=== PATIENT | female | born 1950 | race Caucasian/White ===

== ENCOUNTER 2017-11-10 17:31 | Emergency (ER) | payer MEDICARE, BC ==
--- NOTE | 2017-11-10 18:28 | EDM.PDOC ---
ED HPI GENERAL MEDICAL PROBLEM - General Chief Complaint: General Stated Complaint: ILLNESS Time Seen by Provider: 11/10/17 18:20 Source of Information: Reports: Patient History Limitations: Reports: No Limitations - History of Present Illness INITIAL COMMENTS - FREE TEXT/NARRATIVE: pt arrived with hisory of a fever and frquent stools today. Onset: Today, Other (pt is feeling fatiqued. ) Duration: Hour(s): Location: Reports: Abdomen, Generalized Associated Symptoms: Reports: Fever/Chills, Loss of Appetite, Weakness - Related Data Allergies Allergy/AdvReac Type Severity Reaction Status Date / Time No Known Allergies Allergy Unverified 11/10/17 18:04 Home Meds: Home Meds Aspirin [Low Dose Aspirin EC] 81 mg PO DAILY 04/21/14 [History] Calcium Carbonate 1 tab PO BID 04/21/14 [History] FLUoxetine [PROzac] 30 mg PO DAILY 04/21/14 [History] Folic Acid 2 mg PO DAILY 04/21/14 [History] Hydrochlorothiazide 25 mg PO DAILY 04/21/14 [History] Methotrexate 15 mg PO WEEKLY 04/21/14 [History] Potassium Chloride 10 meq PO DAILY 04/21/14 [History] Simvastatin [Zocor] 40 mg PO DAILY 04/21/14 [History] Triamcinolone Acetonide [Triderm] 1 applic TOP BID PRN 04/21/14 [History] Past Medical History HEENT History: Reports: Cataract, Impaired Vision Cardiovascular History: Reports: High Cholesterol, Hypertension 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: Musculoskeletal History: Reports: RA Other Musculoskeletal History: psoriatic arthritis Psychiatric History: Reports: Anxiety, Depression Endocrine/Metabolic History: Reports: Obesity/BMI 30+ Dermatologic History: Reports: Psoriasis - Infectious Disease History Infectious Disease History: Reports: C-Difficile, Measles, Mumps, Shingles - Past Surgical History HEENT Surgical History: Reports: Cataract Surgery, Tonsillectomy GI Surgical History: Reports: Appendectomy, Cholecystectomy Female Surgical History: Reports: Tubal Ligation Social & Family History - Tobacco Use Smoking Status *Q: Current Every Day Smoker Years of Tobacco use: 19 Packs/Tins Daily: 1 Used Tobacco, but Quit: No Month Tobacco Last Used: 12/19 Second Hand Smoke Exposure: Yes - Caffeine Use Caffeine Use: Reports: Coffee - Alcohol Use Days Per Week of Alcohol Use: 0 - Recreational Drug Use Recreational Drug Use: No ED ROS GENERAL - Review of Systems Review Of Systems: See Below Constitutional: Reports: Fever, Chills, Malaise, Weakness HEENT: Reports: No Symptoms Respiratory: Reports: Cough, Other ( dry non productive. ) Endocrine: Reports: No Symptoms GI/Abdominal: Reports: No Symptoms : Reports: No Symptoms Musculoskeletal: Reports: No Symptoms Skin: Reports: No Symptoms ED EXAM, GENERAL - Physical Exam Exam: See Below Free Text/Narrative:: pt arrived with markd weakness. She has a low grade temp. Sh has not eaten or drank all day. She had part of her toe nail removed but that does not look infected. Exam Limited By: No Limitations General Appearance: Alert, Anxious, Moderate Distress Ears: Normal TMs Nose: Normal Inspection Throat/Mouth: Normal Inspection Head: Atraumatic Neck: Normal Inspection Respiratory/Chest: No Respiratory Distress Cardiovascular: Regular Rate, Rhythm GI/Abdominal: No Distention (Female) Exam: Deferred Rectal (Female) Exam: Deferred Back Exam: Normal Inspection Extremities: Normal Inspection Neurological: Alert, Oriented, Normal Cognition Course - Vital Signs Last Recorded V/S: Last Vital Signs Temp 37.4 C 11/10/17 22:26 Pulse 77 11/10/17 22:26 Resp 18 11/10/17 22:26 BP 155/76 H 11/10/17 22:26 Pulse Ox 93 L 11/10/17 22:26 - Orders/Labs/Meds Labs: Laboratory Tests 11/10/17 11/10/17 11/10/17 Range/Units 18:34 18:34 18:34 WBC 11.0 (4.5-11.0) K/uL RBC 4.62 (3.30-5.50) M/uL Hgb 15.3 H (12.0-15.0) g/dL Hct 43.5 (36.0-48.0) % MCV 94 (80-98) fL MCH 33 H (27-31) pg MCHC 35 (32-36) % Plt Count 158 (150-400) K/uL Neut % (Auto) 83 H (36-66) % Lymph % (Auto) 9 L (24-44) % [place] % (Auto) 8 H (2-6) % Eos % (Auto) 1 L (2-4) % Baso % (Auto) 0 (0-1) % Sodium 139 L (140-148) mmol/L Potassium 2.8 L* (3.6-5.2) mmol/L Chloride 99 L (100-108) mmol/L Carbon Dioxide 28 (21-32) mmol/L Anion Gap 14.8 H (5.0-14.0) mmol/L BUN 16 (7-18) mg/dL Creatinine 0.9 (0.6-1.0) mg/dL Est Cr Clr Drug Dosing 44.52 mL/min Estimated GFR (MDRD) > 60 (>60) Glucose 114 H (74-106) mg/dL Lactic Acid (0.4-2.0) mmol/L Calcium 8.2 L (8.5-10.1) mg/dL Total Bilirubin 0.6 (0.2-1.0) mg/dL AST 20 (15-37) U/L ALT 28 (12-78) U/L Alkaline Phosphatase 51 (46-116) U/L C-Reactive Protein 2.66 H (0.0-0.3) mg/dL Total Protein 6.5 (6.4-8.2) g/dL Albumin 3.5 (3.4-5.0) g/dL Globulin 3.0 (2.3-3.5) g/dL Albumin/Globulin Ratio 1.2 (1.2-2.2) Urine Color Urine Appearance Urine pH (4.5-8.0) Ur Specific [place] (1.008-1.030) Urine Protein (NEGATIVE) mg/dL Urine Glucose (UA) (NEGATIVE) mg/dL Urine Ketones (NEGATIVE) mg/dL Urine Occult Blood (NEGATIVE) Urine Nitrite (NEGATIVE) Urine Bilirubin (NEGATIVE) Urine Urobilinogen (NORMAL) mg/dL Ur Leukocyte Esterase (NEGATIVE) Urine RBC (0-5) Urine WBC (0-5) Ur Epithelial Cells Amorphous Sediment Urine Bacteria Urine Mucus 11/10/17 11/10/17 Range/Units 19:08 21:39 WBC (4.5-11.0) K/uL RBC (3.30-5.50) M/uL Hgb (12.0-15.0) g/dL Hct (36.0-48.0) % MCV (80-98) fL MCH (27-31) pg MCHC (32-36) % Plt Count (150-400) K/uL Neut % (Auto) (36-66) % Lymph % (Auto) (24-44) % [place] % (Auto) (2-6) % Eos % (Auto) (2-4) % Baso % (Auto) (0-1) % Sodium (140-148) mmol/L Potassium (3.6-5.2) mmol/L Chloride (100-108) mmol/L Carbon Dioxide (21-32) mmol/L Anion Gap (5.0-14.0) mmol/L BUN (7-18) mg/dL Creatinine (0.6-1.0) mg/dL Est Cr Clr Drug Dosing mL/min Estimated GFR (MDRD) (>60) Glucose (74-106) mg/dL Lactic Acid 1.6 (0.4-2.0) mmol/L Calcium (8.5-10.1) mg/dL Total Bilirubin (0.2-1.0) mg/dL AST (15-37) U/L ALT (12-78) U/L Alkaline Phosphatase (46-116) U/L C-Reactive Protein (0.0-0.3) mg/dL Total Protein (6.4-8.2) g/dL Albumin (3.4-5.0) g/dL Globulin (2.3-3.5) g/dL Albumin/Globulin Ratio (1.2-2.2) Urine Color Yellow Urine Appearance Slightly cloudy Urine pH 6.0 (4.5-8.0) Ur Specific [place] 1.015 (1.008-1.030) Urine Protein Negative (NEGATIVE) mg/dL Urine Glucose (UA) Normal (NEGATIVE) mg/dL Urine Ketones 15 H (NEGATIVE) mg/dL Urine Occult Blood Moderate (NEGATIVE) Urine Nitrite Negative (NEGATIVE) Urine Bilirubin Small (NEGATIVE) Urine Urobilinogen 1 (NORMAL) mg/dL Ur Leukocyte Esterase Moderate (NEGATIVE) Urine RBC 10-20 H (0-5) Urine WBC 5-10 H (0-5) Ur Epithelial Cells Few Amorphous Sediment Few Urine Bacteria Moderate Urine Mucus Many Meds: Medications Discontinued Medications Generic Name Dose Route Start Last Admin Trade Name Freq PRN Reason Stop Dose Admin Acetaminophen 650 mg 11/10/17 20:58 11/10/17 21:25 Tylenol PO 11/10/17 20:59 650 mg NOW ONE Administration Sodium Chloride 1,000 mls @ 999 mls/hr 11/10/17 18:30 11/10/17 18:58 Normal Saline IV 999 mls/hr ASDIRECTED MIAH Administration Potassium Chloride 20 meq/ 100 mls @ 50 mls/hr 11/10/17 18:59 11/10/17 19:27 Premix IV 11/10/17 20:58 50 mls/hr ONETIME ONE Administration Sodium Chloride 1,000 mls @ 500 mls/hr 11/10/17 20:00 11/10/17 21:24 Normal Saline IV 500 mls/hr ASDIRECTED MIAH Administration Ceftriaxone Sodium 1 gm/ 50 mls @ 100 mls/hr 11/10/17 20:57 11/10/17 21:26 Sodium Chloride IV 11/10/17 21:26 100 mls/hr ONETIME ONE Administration Lidocaine HCl Confirm 11/10/17 19:20 11/10/17 19:31 Xylocaine-Mpf 1% Administered 11/10/17 19:21 Not Given Dose 5 ml .ROUTE .STK-MED ONE Lidocaine HCl 2 ml 11/10/17 19:29 11/10/17 19:30 Xylocaine-Mpf 1% INJECT 11/10/17 19:30 2 ml ONETIME ONE Administration - Re-Assessments/Exams Free Text/Narrative Re-Assessment/Exam: 11/10/17 20:53 pt had a k of 2.8. Her urine looks like it could be infected. A culture was set up. 11/10/17 22:21 lactic acid was normal. She was given rocephen 1 gm iv. 11/14/17 07:33 because of her past history of cdiff she was watched for any fuirther diarrha and she had no loose stools while in the er. Departure - Departure Time of Disposition: 21:38 Disposition: Home, Self-Care 01 Condition: Fair Clinical Impression: Hypokalemia, UTI (urinary tract infection) - Discharge Information Instructions: Hypokalemia, Urinary Tract Infection, Adult Referrals: Francie Benton PA [Primary Care Provider] - Forms: ED Department Discharge Care Plan Goals: tylenol for fever, cipro 500mg bid for 1 week, push fluids, increase kcl to 20 meq. y
[2017-11-10] MEDS ORDERED: Sodium Chloride 0.9% 1,000 ML IV SCH ×2 (18:30→20:00)
[2017-11-10] MEDS ORDERED: Potassium Chloride 20 MEQ in Premix Bag 1 BAG IV ONE (18:59)
[2017-11-10] MEDS ORDERED: cefTRIAXone 1 GM in Sodium Chloride 0.9% 50 ML IV ONE (20:57)
[2017-11-10] MEDS ORDERED: Acetaminophen 325 MG Tab PO ONE (20:58)
[2017-11-10 22:27] VITALS: BP 155/76
--- NOTE | 2017-11-11 10:23 | CR ---
Chest 2V HISTORY: Cough COMPARISON: None FINDINGS: Cardiac size and pulmonary vessels normal. There are no infiltrates or effusions. No pneumo thorax. The osseous structures appear normal. IMPRESSION: No acute pulmonary disease.
== END 2017-11-10 22:32 | disposition home or self-care (01) ==
LOC: JP.ED 17:31
DX: E87.6 Hypokalemia (principal); N39.0 Urinary tract infection, site not specified; E78.00 Pure hypercholesterolemia, unspecified; I10 Essential (primary) hypertension; E66.9 Obesity, unspecified; F17.210 Nicotine dependence, cigarettes, uncomplicated; Z79.899 Other long term (current) drug therapy; Z79.82 Long term (current) use of aspirin
CPT/HCPCS: 36415; 71046; 80053; 81001; 83605; 85025; 86140; 87086; 87804; 96361; 96365; 99284; A9270; J0696; J3480; J7040; J7050; 99283

== ENCOUNTER 2020-10-07 17:49 | Emergency (ER) | payer MEDICARE, BC ==
[2020-10-07 18:08] VITALS: BP 170/77; PULSE 56
[2020-10-07] MEDS ORDERED: Silver Nitrate Applicator Each TOP ONE (18:18)
--- NOTE | 2020-10-07 18:21 | EDM.PDOC ---
ED HPI GENERAL MEDICAL PROBLEM - General Chief Complaint: Laceration Stated Complaint: CUT WHILE SHAVING Time Seen by Provider: 10/07/20 18:16 Source of Information: Reports: Patient History Limitations: Reports: No Limitations - History of Present Illness INITIAL COMMENTS - FREE TEXT/NARRATIVE: 70-year-old female presents emergency department today with a injury to her chin, she has a shaving injury this is superficial but it would not stop bleeding. - Related Data Allergies Allergy/AdvReac Type Severity Reaction Status Date / Time No Known Allergies Allergy Unverified 10/07/20 18:09 Home Meds: Home Meds Aspirin [Low Dose Aspirin EC] 81 mg PO DAILY 04/21/14 [History] Calcium Carbonate 1 tab PO BID 04/21/14 [History] FLUoxetine [PROzac] 30 mg PO DAILY 04/21/14 [History] Folic Acid 2 mg PO DAILY 04/21/14 [History] Methotrexate 15 mg PO WEEKLY 04/21/14 [History] Potassium Chloride 10 meq PO DAILY 04/21/14 [History] Simvastatin [Zocor] 40 mg PO DAILY 04/21/14 [History] Triamcinolone Acetonide [Triderm] 1 applic TOP BID PRN 04/21/14 [History] hydroCHLOROthiazide [Hydrochlorothiazide] 25 mg PO DAILY 04/21/14 [History] Past Medical History HEENT History: Reports: Cataract, Impaired Vision Cardiovascular History: Reports: High Cholesterol, Hypertension 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: Musculoskeletal History: Reports: RA Other Musculoskeletal History: psoriatic arthritis Psychiatric History: Reports: Anxiety, Depression Endocrine/Metabolic History: Reports: Obesity/BMI 30+ Dermatologic History: Reports: Psoriasis - Infectious Disease History Infectious Disease History: Reports: C-Difficile, Measles, Mumps, Shingles - Past Surgical History HEENT Surgical History: Reports: Cataract Surgery, Tonsillectomy GI Surgical History: Reports: Appendectomy, Cholecystectomy Female Surgical History: Reports: Tubal Ligation Social & Family History - Tobacco Use Tobacco Use Status *Q: Current Every Day Tobacco User Years of Tobacco use: 22 Packs/Tins Daily: 1.5 - Caffeine Use Caffeine Use: Reports: Coffee - Recreational Drug Use Recreational Drug Use: No ED ROS GENERAL - Review of Systems Review Of Systems: See Below Skin: Reports: Wound ED EXAM, SKIN/RASH Exam: See Below Course - Vital Signs Last Recorded V/S: Last Vital Signs Temp 97.4 F 10/07/20 18:13 Pulse 56 L 10/07/20 18:13 Resp 16 10/07/20 18:13 BP 170/77 H 10/07/20 18:13 Pulse Ox 98 10/07/20 18:13 - Orders/Labs/Meds Meds: Medications Discontinued Medications Generic Name Dose Route Start Last Admin Trade Name Mehreen PRN Reason Stop Dose Admin Silver Nitrate 1 each 10/07/20 18:18 10/07/20 18:33 Silver Nitrate TOP 10/07/20 18:19 1 each ONETIME ONE Administration Departure - Departure Time of Disposition: 18:37 Disposition: Home, Self-Care 01 Condition: Fair Clinical Impression: Abrasion - Discharge Information Referrals: PCP,None [Primary Care Provider] - Forms: ED Department Discharge Additional Instructions: follow up with primary care as needed Sepsis Event Note (ED) - Evaluation Sepsis Screening Result: No Definite Risk - Focused Exam Vital Signs: Vital Signs Temp Pulse Resp BP Pulse Ox 10/07/20 18:13 97.4 F 56 L 16 170/77 H 98 10/07/20 18:07 97.4 F 56 L 16 170/77 H 98 - Assessment/Plan Plan: Assessment Acuity = acute Site and laterality = superficial abrasion Etiology = secondary to shaving Manifestations = none Location of injury = Home Lab values = none Plan f/u with primary as needed This note was dictated using [employer] voice recognition software please call with any questions on syntax or grammar.
== END 2020-10-07 18:53 | disposition home or self-care (01) ==
LOC: JP.ED 17:49
DX: S00.81XA Abrasion of other part of head, initial encounter (principal); E78.00 Pure hypercholesterolemia, unspecified; I10 Essential (primary) hypertension; M06.9 Rheumatoid arthritis, unspecified; F41.9 Anxiety disorder, unspecified; F32.9 Major depressive disorder, single episode, unspecified; E66.9 Obesity, unspecified; F17.210 Nicotine dependence, cigarettes, uncomplicated; Z68.35 Body mass index [BMI] 35.0-35.9, adult; W27.8XXA Contact with other nonpowered hand tool, initial encounter
CPT/HCPCS: 99282

== ENCOUNTER 2022-12-23 16:19 | Emergency (ER) | payer MEDICARE, BC ==
[2022-12-23 16:47] VITALS: BP 136/79; PULSE 79
== END 2022-12-23 17:12 | disposition home or self-care (01) ==
LOC: JP.ED 16:19
DX: A08.4 Viral intestinal infection, unspecified (principal); I10 Essential (primary) hypertension; E78.00 Pure hypercholesterolemia, unspecified; E66.9 Obesity, unspecified; Z68.32 Body mass index [BMI] 32.0-32.9, adult; Z90.49 Acquired absence of other specified parts of digestive tract; Z79.82 Long term (current) use of aspirin; Z79.899 Other long term (current) drug therapy; Z72.0 Tobacco use
CPT/HCPCS: 99283

== ENCOUNTER 2024-02-17 17:03 | Emergency (ER) | payer MEDICARE, BC ==
[2024-02-17 17:43] VITALS: BP 152/82; PULSE 61
[2024-02-17] MEDS: Ketorolac 30 MG/ML SDV IM ONE (19:09)
== END 2024-02-17 20:14 | disposition home or self-care (01) ==
LOC: JP.ED 17:03
DX: S62.174A Nondisplaced fracture of trapezium [larger multangular], right wrist, initial encounter for closed fracture (principal); S00.93XA Contusion of unspecified part of head, initial encounter; F17.210 Nicotine dependence, cigarettes, uncomplicated; E78.00 Pure hypercholesterolemia, unspecified; I10 Essential (primary) hypertension; E66.9 Obesity, unspecified; Z79.82 Long term (current) use of aspirin; Z79.899 Other long term (current) drug therapy; Z86.19 Personal history of other infectious and parasitic diseases; Z90.49 Acquired absence of other specified parts of digestive tract; Z68.34 Body mass index [BMI] 34.0-34.9, adult; W01.0XXA Fall on same level from slipping, tripping and stumbling without subsequent striking against object, initial encounter
CPT/HCPCS: 29125; 73110; 96372; 99283; J1885

== ENCOUNTER 2025-09-29 12:09 | Emergency (ER) | payer MEDICARE, BC ==
[2025-09-29] MEDS ORDERED: Nitroglycerin 0.4 MG Tab.SL SL PRN (12:17)
[2025-09-29 12:26] LABS: BASOPHILS ABSOLUTE AUTO 0.04 K/uL (0.00-0.10); BASOPHILS PERCENT AUTO 0.5 % (0.1-1.3); EOSINOPHILS ABSOLUTE AUTO 0.14 K/uL (0.00-0.40); EOSINOPHILS PERCENT AUTO 1.9 % (0.0-5.4); IMMATURE GRAN PERCENT AUTO 0.3 % (0.0-0.7); LYMPHOCYTES ABSOLUTE AUTO 2.42 K/uL (0.8-3.3); LYMPHOCYTES PERCENT AUTO 32.8 % (11.4-47.7); MONOCYTES ABSOLUTE AUTO 0.63 K/uL (0.20-0.90); MONOCYTES PERCENT AUTO 8.5 % (3.3-12.6); NEUTROPHILS ABSOLUTE AUTO 4.13 K/uL (1.0-7.6); NEUTROPHILS PERCENT AUTO 56.0 % (40.0-78.1); PLATELET COUNT,PLT 175 K/uL (130-375); RED BLOOD CELL COUNT 4.13 M/uL (3.77-5.24); WHITE BLOOD CELL COUNT,WBC 7.4 K/uL (3.2-11.0)
[2025-09-29 12:38] LABS: IMMATURE GRAN ABSOLUTE AUTO 0.02 K/uL (0.00-0.23)
[2025-09-29 12:44] LABS: INR 0.9
[2025-09-29 12:56] LABS: A/G RATIO 1.2 (1.2-2.2); ALANINE AMINOTRANSFERASE,ALT 31 U/L (12-78); ASPARTATE AMNIOTRANSFERASE,AST 23 U/L (15-37); BILIRUBIN TOTAL 0.5 mg/dL (0.2-1.0); BLOOD UREA NITROGEN,BUN 12 mg/dL (7-18); CARBON DIOXIDE,CO2 34 mmol/L (21-32); CHLORIDE,CL 101 mmol/L (100-108); CREATININE 0.7 mg/dL (0.6-1.0); EST CRCL DRUG DOSING (CG) 50.79 mL/min; ESTIMATED GFR 89 mL/min (>60); GLUCOSE RANDOM 88 mg/dL (74-106); POTASSIUM,K 3.2 mmol/L (3.6-5.2); PRO B-TYPE NATRIUR PEPT,BNPPRO 137 pg/mL (5-450); PROTEIN TOTAL,TP 6.5 g/dL (6.4-8.2); SODIUM,NA 143 mmol/L (140-148); TROPONIN I HIGH SENSITIVITY 16.3 pg/mL (<=60.3)
[2025-09-29] MEDS: Iopamidol 755 Mg/ML 100 ML Bottle IV SCH (14:14)
[2025-09-29] MEDS: Sodium Chloride 0.9% 10 ML Syringe FLUSH PRN (14:14)
[2025-09-29 16:13] VITALS: BP 157/74; PULSE 55
== END 2025-09-29 16:56 | disposition home or self-care (01) ==
LOC: JP.ED 12:09
DX: R07.89 Other chest pain (principal); E86.0 Dehydration; I10 Essential (primary) hypertension; E78.00 Pure hypercholesterolemia, unspecified; E66.9 Obesity, unspecified; Z90.49 Acquired absence of other specified parts of digestive tract; Z79.82 Long term (current) use of aspirin; Z79.899 Other long term (current) drug therapy; Z68.30 Body mass index [BMI] 30.0-30.9, adult
CPT/HCPCS: 36415; 71045; 71275; 80053; 83605; 83735; 83880; 84484; 85025; 85379; 85610; 93005; 96360; 96361; 99285; A9270; J7030; Q9967